=== PATIENT | male | born 1995 | race Caucasian/White ===

== ENCOUNTER 2022-02-01 16:50 | Outpatient (CLI) | payer OTHER ==
[~2022-02-01 16:50] MED LIST: GADOBUTROL 10 MMOL/10 ML VIAL ONE; GADOBUTROL 15 MMOL/15 ML VIAL ONE
[2022-02-01] MEDS ORDERED: GADOBUTROL 10 MMOL/10 ML VIAL IVP ONE (18:01)
--- NOTE | 2022-02-02 09:25 | MRI Report ---
PROCEDURE: IAC'S W/WO INDICATIONS: HEARING LOSS CONTRAST: 10.0 TECHNIQUE: Noncontrast sagittal T1 spin echo, axial FLAIR, axial gradient echo, axial diffusion and ADC through the brain. Axial thin-slice 3D CISS, coronal balanced GE, axial T1 spin echo with fat saturation thr ough the internal auditory canals. After the administration of contrast, thin slice axial and pham l T1 spin echo with fat saturation through the internal auditory canals, and axial T1 spin echo with fat saturation through the brain. COMPARISON: None. FINDINGS: Image quality: Excellent. Cerebellopontine angles: No cerebellopontine angle masses. Inner ear structures appear normally for med. No suspicious enhancement in the internal auditory canal or along the course of the 7th cranial nerve. CSF spaces: Ventricles are normal in size and shape. No extra-axial fluid collections. Basal ciste rns are patent. Brain: No intracranial bleeds or mass effects. [place]-white matter interface is intact. No abnormal intracranial enhancement. Diffusion weighted images demonstrate no acute ischemic insults. Brainste m appears normal. Normal intravascular flow voids are present. Skull and face: Calvarial marrow signal is normal. Orbits appear normal. Sinuses: Sinuses and mastoids are clear. IMPRESSION: No imaging explanation is found for the patient's presenting symptoms. Specifically, no findings of m asses or abnormal enhancement can be found within the internal auditory canals or the cerebellopontin e angle cisterns. Reviewed by: Josh Dawson MD on 02/02/2022 8:24 AM [facility] Approved by: Josh Dawson MD on 02/02/2022 8:24 AM [facility] Station ID: [id number]
== END 2022-02-01 16:51 | disposition home or self-care (01) ==
LOC: DI 16:50
PROVIDERS: ATTEND Student in an Organized Health Care Education/Training Program
DX: H91.91 Unspecified hearing loss, right ear (principal)
CPT/HCPCS: 70553; A9585